=== PATIENT | female | born 1990 | race Caucasian/White ===

== ENCOUNTER 2020-09-15 17:45 | Observation (INO) ==
[2020-09-15] MEDS ORDERED: ACETAMINOPHEN 500 MG TAB PO PRN (18:23)
--- NOTE | 2020-09-15 19:40 | Obstetrical Progress Note ---
Date of Service September 15, 2020 Assessment & Plan Admission and Anticipated Discharge Date Admission Date: September 15, 2020 Subjective Observation Note 30 F P0010 at 36.5 weeks seen in ER today for fall while out shopping. Fell on her left side with wrist fracture diagnosed and CT of head which is negative with bruise to her forehead on left. Abdomen is soft. No bleeding or contractions. NST Cat 1. Will have patient follow up with orthopedic surgeon tomorrow. Call our office for any changes. Results & Data ([facility]) Vital Signs (Past 12 Hours) Vital Signs Temp Pulse Pulse Resp BP BP 09/15/20 19:05 83 110/78 09/15/20 19:04 36.7 C 78 18 110/78 09/15/20 17:53 36.8 C 18 09/15/20 17:46 78 126/82
== END 2020-09-15 19:55 | disposition home or self-care (01) ==
LOC: OPB 17:45 → 4S1 17:45

== ENCOUNTER 2020-10-09 02:11 | Inpatient (IN) ==
[2020-10-09] MEDS ORDERED: OXYTOCIN 30 UNITS/500 ML BAG IV PRN ×4 (02:48→17:00)
[2020-10-09] MEDS: LACTATED RINGER'S 1,000 ML IV PRN ×4 (03:00→14:13)
[2020-10-09 03:25] LABS: Hematocrit (blood only) 36.5 % (37-47); Hemoglobin 12.5 g/dL (12.0-16.0); Mean Corpuscular Hemoglobin 30.8 pg (25-34); Mean Corpuscular Hgb Conc 34.2 g/dL (32-36); Mean Corpuscular Volume 89.9 fL (80-100); Mean Platelet Volume 11.7 fL (7.4-10.4); Platelet Count 136 K/uL (130-400); RDW Coefficient of Variation 12.7 % (11.5-14.5); RDW Standard Deviation 41.6 fL (36.4-46.3); Red Blood Count 4.06 M/uL (4.2-5.4); White Blood Count 10.21 K/uL (4.8-10.8)
[2020-10-09] MEDS ORDERED: ePHEDrine sulfate 50 MG/ML AMP ONE (03:49)
[2020-10-09] MEDS ORDERED: SODIUM CHLORIDE 0.9% INJ 10 ML VIAL ONE (03:49)
[2020-10-09] MEDS ORDERED: fentaNYL citrate 100 MCG/2 ML VIAL ONE (03:50)
[2020-10-09] MEDS ORDERED: fentaNYL 2MCG/ML ROPIVACAINE 1.25MG/ML 100 ML BAG EPI ONE (03:50)
[2020-10-09] MEDS ORDERED: BUPIVACAINE 0.25% 30 ML VIAL ONE (03:50)
[2020-10-09] MEDS ORDERED: ePHEDrine sulfate 50 MG/ML AMP IV PRN (04:15)
[2020-10-09] MEDS ORDERED: NALOXONE HCL 1 MG in SODIUM CHLORIDE 0.9% 1000ML 1,000 ML IV PRN (04:15)
[2020-10-09] MEDS ORDERED: diphenhydrAMINE 50 MG/ML VIAL IV PRN (04:15)
[2020-10-09] MEDS ORDERED: ONDANSETRON INJ 2 MG/ML 2 ML VIAL IV PRN (04:15)
[2020-10-09] MEDS ORDERED: fentaNYL 2MCG/ML ROPIVACAINE 1.25MG/ML 100 ML BAG EPI PRN (04:15)
[2020-10-09] MEDS ORDERED: NALOXONE HCL 0.4 MG/1 ML VIAL/CARP IV PRN (04:15)
--- NOTE | 2020-10-09 04:15 | Anesthesiology Consultation ---
Date of Service October 09, 2020 Assessment & Plan ASA ASA2 Proposed Anesthesia Anesthesia Type: Labor Epidural Risk / Benefits Reviewed With: PT / POA / Parent / Guardian, Accepts Plan and Informed Consent Obtained History Height/Weight Height: 5 ft 7 in Weight: 83.915 kg Allergies Allergy/AdvReac Type Severity Reaction Status Date / Time weed pollen Allergy Wheezing Verified 09/23/20 09:12 Medications Home Medications Medication Instructions Recorded Confirmed Last Taken Vitamin 1 tab PO DAILY 09/15/20 10/09/20 10/08/20 12:00 Active Medications Generic Name Dose Route Start Last Admin Trade Name Freq PRN Reason Stop Dose Admin Lactated Ringer's 1,000 mls @ 125 mls/hr 10/09/20 02:48 10/09/20 03:00 Lr IV 10/11/20 02:47 999 mls/hr .Q8H PRN Administration L&D Protocol Protocol Past Medical History Medical History Left wrist fracture s/p fall at 37 weeks Migraine Exercise / Class Metabolic Activity II 4-5 Yardwork/Stairs/Walk up hill Past Family History Family History Mother Breast cancer Father Hypertension Denies family history of Ovarian cancer Prostate cancer Myocardial infarction Lung cancer Colorectal cancer Past Surgical History Surgical History H/O oral surgery S/P tonsillectomy Past Anesthesia History No Hx of Anesthesia Complications and No Family Hx of Anesthesia Complications History of PONV No Hx of PONV and No Hx of Motion Sickness Social History Smoking Status: Never smoker Hx Alcohol Use: No Alcohol type: beer and wine Hx Substance Use: No substance use type: does not use Review of Systems denies fever/cough/ colds/ chest pain/ SOB/ [place] denies [place] Physical Exam Vital Signs Last Vital Signs Temp 37.1 C 10/09/20 02:25 Pulse 81 10/09/20 04:33 Resp 20 10/09/20 02:25 BP 116/71 10/09/20 04:33 Pulse Ox 99 10/09/20 04:31 ENMT Mouth: no TMJ abnormality and no dentition abnormality Thyromental Distance: > or= 3.5 Finger Breadths Mallampati Class: II Neck neck extension not limited Respiratory normal respiratory effort; no respiratory distress Auscultation: lungs clear to auscultation bilaterally Cardiovascular Rate/Rhythm: regular rate and regular rhythm Neurologic moves all extremities Psychiatric Orientation: alert and oriented x 3 Testing Laboratory Results 10/09/20 03:16
--- NOTE | 2020-10-09 08:41 | Progress Note ---
Date of Service October 09, 2020 Assessment & Plan Admission and Anticipated Discharge Date Admission Date: October 09, 2020 Subjective Pt doing well Epidural analgesia on board FHR; CAT1 ctx. minimal and irregular VE; 4 cm SROM discussed starting Pitocin Results & Data ([facility]) Vital Signs (Past 12 Hours) Vital Signs Temp Pulse Resp BP Pulse Ox 10/09/20 08:27 62 101/59 L 10/09/20 08:06 71 92 10/09/20 08:01 66 93 10/09/20 07:57 18 10/09/20 07:56 75 100/63 93 10/09/20 07:54 84 94 10/09/20 07:51 80 95 10/09/20 07:46 77 96 10/09/20 07:44 71 93 10/09/20 07:41 69 101/65 95 10/09/20 07:37 78 94 10/09/20 07:36 73 95 10/09/20 07:32 72 96 10/09/20 07:31 72 96 10/09/20 07:26 70 98/71 L 95 10/09/20 07:21 37.2 C 75 18 95 10/09/20 07:20 86 94 10/09/20 07:16 79 95 10/09/20 07:12 78 94 10/09/20 07:11 76 103/73 96 10/09/20 07:07 82 94 10/09/20 07:06 80 95 10/09/20 07:01 78 94 10/09/20 06:56 70 99/62 L 93 10/09/20 06:51 69 94 10/09/20 06:50 71 94 10/09/20 06:46 74 93 10/09/20 06:44 74 94 10/09/20 06:41 69 94/64 L 94 10/09/20 06:39 70 93 10/09/20 06:36 70 94 10/09/20 06:31 72 94 10/09/20 06:30 72 94 10/09/20 06:26 83 91/63 L 97 10/09/20 06:25 74 94 10/09/20 06:21 81 97 10/09/20 06:16 73 94 10/09/20 06:11 65 96/61 L 94 10/09/20 06:07 69 94 10/09/20 06:06 77 94 10/09/20 06:03 36.7 C 10/09/20 06:01 74 18 95 10/09/20 05:57 71 108/65 92 10/09/20 05:56 72 93 10/09/20 05:51 78 94 10/09/20 05:48 72 94 10/09/20 05:46 75 94 10/09/20 05:44 18 10/09/20 05:42 72 94 10/09/20 05:41 69 95/61 L 95 10/09/20 05:37 76 94 10/09/20 05:36 78 95 10/09/20 05:32 77 94 10/09/20 05:31 77 95 10/09/20 05:26 66 98/61 L 95 10/09/20 05:25 73 94 10/09/20 05:21 74 95 10/09/20 05:16 89 18 97 10/09/20 05:11 67 93/59 L 97 10/09/20 05:06 76 97 10/09/20 05:01 70 96 10/09/20 04:56 84 97/63 L 96 10/09/20 04:55 18 10/09/20 04:51 88 96 10/09/20 04:50 18 10/09/20 04:46 80 97 10/09/20 04:45 18 10/09/20 04:41 88 96 10/09/20 04:40 18 10/09/20 04:39 86 110/70 10/09/20 04:37 84 114/71 10/09/20 04:36 89 97 10/09/20 04:35 85 18 110/73 10/09/20 04:33 81 116/71 10/09/20 04:31 80 115/75 99 10/09/20 04:30 36.7 C 18 10/09/20 04:29 70 124/85 10/09/20 04:26 67 98 10/09/20 02:46 70 136/62 10/09/20 02:25 37.1 C 20
[2020-10-09] MEDS ORDERED: METHYLERGONOVINE MALEATE 0.2 MG/ML AMP ONE (16:04)
[2020-10-09] MEDS ORDERED: LIDOCAINE HCL 1% 20 ML VIAL ONE (16:05)
[2020-10-09] MEDS ORDERED: DIPHTHERIA/TETANUS/PERTUSSIS 0.5 ML SYR/VIAL IM ONE (16:38)
[2020-10-09] MEDS ORDERED: miSOPROStoL 200 MCG TAB PR ONE (16:38)
[2020-10-09] MEDS ORDERED: METHYLERGONOVINE MALEATE 0.2 MG/ML AMP IM ONE (16:38)
[2020-10-09] MEDS ORDERED: SUPERCREAM 0.870% 15 GM JAR EXT PRN (16:38)
[2020-10-09] MEDS ORDERED: HYDROCORTISONE ACETATE 25 MG SUPP PR PRN (16:38)
[2020-10-09] MEDS ORDERED: BENZOCAINE 20% AER SPR 82.5 GM CAN EXT PRN (16:38)
[2020-10-09] MEDS ORDERED: ACETAMINOPHEN 325 MG TAB PO PRN (16:38)
[2020-10-09] MEDS ORDERED: LACTATED RINGER'S 1,000 ML IV SCH (16:45)
--- NOTE | 2020-10-09 17:29 | Anesthesia Procedure Note ---
Date of Service October 09, 2020 Anesthesia Post Epidural Note Vital Signs Vital Signs: Temp Pulse Resp BP Pulse Ox 37.0 C 86 18 121/72 94 10/09/20 13:25 10/09/20 16:27 10/09/20 14:30 10/09/20 16:27 10/09/20 15:56 Notes Anesthetic Complications: no major complications apparent Epidural: Removed without complications and With tip intact Notes: Epidural Removed without difficulty. Tip Intact. Patient tolerated well.
[2020-10-09] MEDS: IBUPROFEN 600 MG TAB PO PRN (18:49)
[2020-10-09] MEDS: DOCUSATE SODIUM 100 MG CAP PO SCH (21:29)
[2020-10-10 06:19] LABS: Hematocrit (blood only) 32.1 % (37-47); Hemoglobin 10.8 g/dL (12.0-16.0); Mean Corpuscular Hemoglobin 30.6 pg (25-34); Mean Corpuscular Hgb Conc 33.6 g/dL (32-36); Mean Corpuscular Volume 90.9 fL (80-100); Mean Platelet Volume 11.4 fL (7.4-10.4); Platelet Count 142 K/uL (130-400); RDW Coefficient of Variation 12.9 % (11.5-14.5); RDW Standard Deviation 42.7 fL (36.4-46.3); Red Blood Count 3.53 M/uL (4.2-5.4); White Blood Count 14.89 K/uL (4.8-10.8)
[2020-10-10] MEDS: PRENATAL VITAMIN 1 TAB PO SCH (07:42)
[2020-10-10] MEDS: IBUPROFEN 600 MG TAB PO PRN ×3 (07:42→19:07)
[2020-10-10] MEDS: DOCUSATE SODIUM 100 MG CAP PO SCH ×2 (07:42→20:12)
--- NOTE | 2020-10-10 08:00 | Delivery Summary ---
DATE OF OPERATION: 10/09/2020 The patient delivered a live infant female in occiput anterior presentation. There was no nuchal cord. Infant was delivered. Delayed cord clamp was performed after infant was placed on mother's abdomen. Cord blood was obtained. Placenta was spontaneously delivered. Inspection of placenta shows normal looking placenta. Inspection of the perineum showed a second-degree laceration, which was repaired with 2-0 Vicryl in layers. Rectal exam post repair shows good sphincter tone. Estimated blood loss is 450 mL. All instruments were removed from the vagina and accounted for x2 including sponges, needles and retractors. The patient is sent to recovery in stable condition. Infant's weight and Apgars in the pediatric record. I attest to the content of the Intraoperative Record and any orders documented therein. Any exception s are noted below.
--- NOTE | 2020-10-10 10:01 | Obstetrical Progress Note ---
Date of Service October 10, 2020 Assessment & Plan Admission and Anticipated Discharge Date Admission Date: October 09, 2020 Subjective PPD#1 doing well tolerating diet passing gas out of bed Physical Exam Constitutional: WD/WN, vitals as above well developed and comfortable Results & Data ([facility]) Vital Signs (Past 12 Hours) Vital Signs Temp Pulse Resp BP Pulse Ox 10/10/20 07:45 36.4 C L 72 16 96/64 L 99 10/10/20 04:35 36.4 C L 71 16 114/76 98 10/09/20 23:20 36.5 C 81 16 108/72 97 Laboratory Results 10/09/20 10/09/20 10/09/20 03:16 Unknown Unknown WBC 10.21 RBC 4.06 L Hgb 12.5 Hct 36.5 L MCV 89.9 MCH 30.8 MCHC 34.2 RDW Std Deviation 41.6 RDW Coeff of Michelle 12.7 Plt Count 136 MPV 11.7 H COVID-19 Eval [facility] [place] SARS-CoV-2, RNA, NAAT NEGATIVE 10/10/20 06:09 WBC 14.89 H RBC 3.53 L Hgb 10.8 L Hct 32.1 L MCV 90.9 MCH 30.6 MCHC 33.6 RDW Std Deviation 42.7 RDW Coeff of Michelle 12.9 Plt Count 142 MPV 11.4 H COVID-19 Eval Order SARS-CoV-2, RNA, NAAT for d/c in AM
[2020-10-10] MEDS ORDERED: bisacodyL 5 MG TABEC PO SCH (20:00)
[2020-10-11] MEDS: IBUPROFEN 600 MG TAB PO PRN (02:31)
[2020-10-11 06:18] LABS: Hematocrit (blood only) 26.3 % (37-47); Hemoglobin 8.7 g/dL (12.0-16.0)
[2020-10-11] MEDS: PRENATAL VITAMIN 1 TAB PO SCH (07:59)
[2020-10-11] MEDS: DOCUSATE SODIUM 100 MG CAP PO SCH (08:00)
--- NOTE | 2020-10-11 09:50 | Obstetrical Progress Note ---
Date of Service October 11, 2020 Assessment & Plan (1) Normal course: day #1 Pt doing well disch home with instrcutions Subjective Ambulation: ambulating normally Voiding: no voiding problems Passing Gas:: Yes Diet Tolerance:: regular diet Lochia:: Small Feeding Type:: breast feeding Review of Systems All systems reviewed & are unremarkable except as noted in HPI & below Physical Exam Constitutional WD/WN, vitals as above well developed and well nourished Eyes PERRL, conjunctivae normal, anicteric sclerae Neck trachea midline, no thyromegaly Respiratory normal respiratory effort, lungs clear to auscultation Auscultation: no crackles, no rales and no wheezes Cardiovascular RRR, no murmur, no edema Gastrointestinal (Abdomen) normal bowel sounds, soft, nontender, no hepatosplenomegaly Uterus is below umbilicus Musculoskeletal no cyanosis or clubbing, extremities motor strength 5/5 Skin no rashes, warm and dry Neurologic patellar DTR's 2+ bilat, sensation intact Psychiatric A+Ox3, euthymic affect Genitourinary normal external appearance Results & Data ([facility]) Vital Signs (Past 12 Hours) Vital Signs Temp Pulse Resp BP Pulse Ox 10/11/20 07:30 36.5 C 71 18 119/84 98 10/10/20 22:50 36.4 C L 76 18 125/88 98
[2020-10-11] MEDS ORDERED: bisacodyL 10 MG SUPP PR PRN (16:46)
== END 2020-10-11 12:11 | disposition home or self-care (01) | DRG 807 ==
LOC: OPB 02:11 → 4S1 02:15 → 4S2 19:02